=== PATIENT | male | born 1960 | race Caucasian/White ===

== ENCOUNTER → 2018-03-19 | Outpatient (CLI) | payer OTHER ==
[~2018-03-19] MED LIST: None per pt
== END | disposition home or self-care (01) ==
LOC: STAR 13:14
PROVIDERS: ATTEND Internal Medicine
DX: Z01.818 Encounter for other preprocedural examination (principal); K63.5 Polyp of colon
CPT/HCPCS: 93005

== ENCOUNTER 2018-03-25 05:43 | Day surgery (SDC) | payer OTHER ==
[~2018-03-25] VITALS: Ht 177.8 cm; Wt 94.9 kg
[2018-03-25] MEDS ORDERED: LACTATED RINGERS 1,000 ML IV SCH (06:15)
[2018-03-25 06:19] VITALS: BP 132/90
[2018-03-25] MEDS ORDERED: LIDOCAINE PF 2%, 5ML ONE (07:24)
[2018-03-25] MEDS ORDERED: PROPOFOL 10 MG/ML, 50ML ONE (07:24)
[2018-03-25] MEDS ORDERED: LABETALOL 5MG/ML, 20ML IV PRN (08:00)
[2018-03-25] MEDS ORDERED: ONDANSETRON 2MG/ML, 2ML IV PRN (08:00)
[2018-03-25] MEDS ORDERED: hydrALAzine 20 MG/ML, 1ML IV PRN (08:00)
[2018-03-25] MEDS ORDERED: ACETAMINOPHEN 325 MG TABLET PO PRN (08:00)
[2018-03-25] MEDS ORDERED: FENTANYL PF 100 MCG/2ML IV PRN (08:00)
== END 2018-03-25 10:35 | disposition home or self-care (01) ==
LOC: OUT 05:43
PROVIDERS: ATTEND Internal Medicine
DX: Z09 Encounter for follow-up examination after completed treatment for conditions other than malignant neoplasm (principal); D12.0 Benign neoplasm of cecum; K63.5 Polyp of colon; Z86.010 Personal history of colon polyps; Z98.890 Other specified postprocedural states
CPT/HCPCS: 45380; 45385; 88305; J2704; J7120